=== PATIENT | male | born 1950 | race Caucasian/White ===

== ENCOUNTER 2017-04-04 06:13 | Day surgery (SDC) | payer MEDICARE, OTHER ==
[~2017-04-04 06:13] MED LIST: Dextrose 5%-0.45% NaCl 1,000 ML IV SCH; Sodium Chloride 0.9% 10 ML Syringe FLUSH PRN
[2017-04-04] MEDS ORDERED: Midazolam 1 MG/ML 2 ML SDV IV ONE ×3 (06:14→07:04)
[2017-04-04] MEDS ORDERED: fentaNYL 100 MCG/2 ML SDV IV ONE ×3 (06:14→07:03)
[2017-04-04] MEDS ORDERED: Midazolam 1 MG/ML 2 ML SDV ONE (06:15)
[2017-04-04] MEDS ORDERED: fentaNYL 100 MCG/2 ML SDV ONE (06:16)
--- NOTE | 2017-04-04 07:57 | OR ---
DATE: 04/04/2017 PROCEDURE: Esophagogastroduodenoscopy and multiple pinch biopsies. INSTRUMENT USED: [id number] Olympus video panendoscope. PREMEDICATIONS: No oral topical anesthesia used. Fentanyl 100 mcg intravenous and Versed 2 mg intravenous. The procedure was done under pulse oximetry, BP recording, and world language teacher. INDICATION: The patient with persistent abdominal bloating, dyspepsia, and pain, unexplained and not responsive to medical measures, on long-term aspirin. Recent CT is suggestive of abnormality of the duodenal wall. Esophagogastroduodenoscopy is performed for detection of any active erosive lesions, malignancy also under consideration, H. pylori status to be determined, endoscopic hemostasis therapy if needed. DESCRIPTION OF PROCEDURE: The scope was passed with ease. Adequate visualization of the esophagus was made from proximal to distal areas. No upper esophageal lesions identified. No distal esophageal stricture. No uphill or downhill esophageal varices. No Radha-Do tear. No evidence of erosive esophagitis by Bowman criteria. No esophageal polyp or tumor mass identified. Z-line was seen at around 40 cm distal to the oral verge, configuration consistent with grade 1 by ZAP classification. No proximal gastric varices noted. Gastric fundus examination by retroflexion showed no polypoid lesions. No gastric ulcer, malignant mass, or vascular ectasia identified. Duodenal bulb showed no ulcer. Visualized second part of the duodenum was unremarkable. Multiple pinch biopsies were taken from the gastric antrum and proximal body and sent for PyloriTek test for H. pylori, and if negative in an hour, tissue was to be sent for histopathology. No bleeding was noted from any of the visualized areas at the completion of examination. Photographs were taken of the duodenal bulb, gastric antrum, fundus, and distal esophagus. IMPRESSION: Normal study. The patient tolerated the procedure well. [facility] /[id number]
[2017-04-04 09:45] VITALS: BP 128/92
== END 2017-04-04 09:19 | disposition home or self-care (01) ==
LOC: DL.ENDO 06:13
PROVIDERS: ATTEND Internal Medicine Gastroenterology
DX: K29.50 Unspecified chronic gastritis without bleeding (principal)
CPT/HCPCS: 43239; 87077; J2250; J3010; J7042; 88305; 88342

== ENCOUNTER 2018-07-19 17:50 | Emergency (ER) | payer MEDICARE, OTHER ==
[2018-07-19 18:31] VITALS: BP 159/71
[2018-07-19] MEDS ORDERED: Furosemide 20 MG Tab PO ONE (18:57)
--- NOTE | 2018-07-19 19:02 | EDM.PDOC ---
ED HPI GENERAL MEDICAL PROBLEM - General Chief Complaint: General Stated Complaint: REACTION TO MEDS. SWELLING TO FEET AND ANCHES. 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 denies CP/SOB. no pain in legs. has been suggested water pill will help. - Related Data Allergies Allergy/AdvReac Type Severity Reaction Status Date / Time atorvastatin calcium Allergy Other Verified 07/19/18 18:21 [From Lipitor] CALCIUM CONTAINING COMPOUNDS Allergy Other Uncoded 07/19/18 18:21 Home Meds: Home Meds Naproxen Sodium [Aleve] 1 tab PO DAILY PRN 11/20/15 [History] Rosuvastatin Calcium [Crestor] 10 mg PO DAILY 11/20/15 [History] Omeprazole 20 mg PO DAILY 06/27/18 [History] Docusate Sodium [Colace] 100 mg PO DAILY 07/19/18 [History] Itraconazole 200 mg PO BID 07/19/18 [History] Melatonin 5 mg PO BEDTIME 07/19/18 [History] Past Medical History HEENT History: Reports: Impaired Vision, Sinusitis Other HEENT History: wears glasses Cardiovascular History: Reports: High Cholesterol, Hypertension, Other (See Below) Other Cardiovascular History: SYSTOLIC MURMUR Respiratory History: Reports: None Gastrointestinal History: Reports: None, GERD, GI Bleed Genitourinary History: Reports: None Musculoskeletal History: Reports: Arthritis, Back Pain, Chronic, Other (See Below) Other Musculoskeletal History: RIGHT SIDED NECK PAIN RADIATING TO RIGHT UE; DDD CERVICAL; Neurological History: Reports: None Psychiatric History: Reports: None Endocrine/Metabolic History: Reports: Other (See Below) Other Endocrine/Metabolic History: MULTIPLE THYROID NODULES Hematologic History: Reports: None Other Hematologic History: due to bleeding ulcer in the Immunologic History: Reports: None Oncologic (Cancer) History: Reports: Squamous Cell Carcinoma Dermatologic History: Reports: Other (See Below) Other Dermatologic History: NEOPLASM OF UNCERTAIN BEHAVIOR OF SKIN LEFT HAND - Infectious Disease History Infectious Disease History: Reports: Chicken Pox, Measles, Mumps - Past Surgical History Head Surgeries/Procedures: Reports: None HEENT Surgical History: Reports: None, Naso-Sinus Surgery Cardiovascular Surgical History: Reports: None GI Surgical History: Reports: Colostomy, EGD Other GI Surgeries/Procedures: hx of colon polyps Social & Family History - Family History Family Medical History: Noncontributory - Tobacco Use Smoking Status *Q: Former Smoker Years of Tobacco use: 50 Packs/Tins Daily: 0.5 Used Tobacco, but Quit: Yes Month/Year Tobacco Last Used: april - Caffeine Use Caffeine Use: Reports: Coffee Caffeine Use Comment: 64oz - Recreational Drug Use Recreational Drug Use: No ED ROS GENERAL - Review of Systems Review Of Systems: ROS reveals no pertinent complaints other than HPI. ED EXAM, GENERAL - Physical Exam Exam: See Below Exam Limited By: No Limitations General Appearance: Alert, WD/WN, No Apparent Distress Ears: Hearing Grossly Normal Throat/Mouth: Normal Voice, No Airway Compromise Head: Atraumatic Neck: Non-Tender, Full Range of Motion Respiratory/Chest: No Respiratory Distress Cardiovascular: Regular Rate, Rhythm GI/Abdominal: Soft, Non-Tender Extremities: Pedal Edema, Other (1+ bilateral, NV wnl, gait normal) Neurological: Alert, Oriented, Normal Cognition, Normal Gait, No Motor/Sensory Deficits Psychiatric: Normal Affect, Normal Mood Skin Exam: Warm, Dry, Normal Color Lymphatic: No Adenopathy Course - Vital Signs Last Recorded V/S: Last Vital Signs Temp 36.6 C 07/19/18 18:11 Pulse 74 07/19/18 18:11 Resp 16 07/19/18 18:11 BP 159/71 H 07/19/18 18:30 Pulse Ox 100 07/19/18 18:11 - Orders/Labs/Meds Orders: Active Orders 24 hr Category Date Time Status Furosemide [Lasix] Med 07/19/18 18:57 Once 20 mg PO ONETIME ONE Departure - Departure Time of Disposition: 19:00 Disposition: Home, Self-Care 01 Condition: Good Clinical Impression: Pedal edema - Discharge Information Instructions: Edema, [id number] Additional Instructions: 1) wear compression socks 2) elevate legs as much as possible 3) recheck if there is any change or concern $) follow up with family doctor rx given; lasix 20mg daily x 5 days - My Orders Last 24 Hours: My Active Orders 07/19/18 18:57 Furosemide [Lasix] 20 mg PO ONETIME ONE - Assessment/Plan Last 24 Hours: My Active Orders 07/19/18 18:57 Furosemide [Lasix] 20 mg PO ONETIME ONE
== END 2018-07-19 19:10 | disposition home or self-care (01) ==
LOC: DL.ED 17:50
DX: R60.9 Edema, unspecified (principal); I10 Essential (primary) hypertension; E78.00 Pure hypercholesterolemia, unspecified; K21.9 Gastro-esophageal reflux disease without esophagitis; Z85.828 Personal history of other malignant neoplasm of skin; Z87.891 Personal history of nicotine dependence; Z79.899 Other long term (current) drug therapy; Z88.8 Allergy status to other drugs, medicaments and biological substances
CPT/HCPCS: 99284; A9270

== ENCOUNTER 2018-08-02 11:36 | Emergency (ER) | payer MEDICARE, OTHER ==
[2018-08-02 11:47] VITALS: PULSE 57
[2018-08-02] MEDS ORDERED: Sodium Chloride 0.9% 10 ML Syringe FLUSH PRN (11:47)
--- NOTE | 2018-08-02 11:50 | EDM.PDOC ---
ED HPI GENERAL MEDICAL PROBLEM - General Chief Complaint: General Stated Complaint: BP,SWELLING [id number] Time Seen by Provider: 08/02/18 11:49 Source of Information: Reports: Patient, RN, RN Notes Reviewed History Limitations: Reports: No Limitations - History of Present Illness INITIAL COMMENTS - FREE TEXT/NARRATIVE: Pt to Er with c/o feeling of bloating, denies abdominal pain. States he is "not constipated, but not emptying everything out". He states he was seen on 07/19 in the ER by Dr. Lin. States he was started on Lasix at that time, and BP meds as well that were reordered by Dr. Britt on 07/30. States he was in a clinical trial which found a fungal infection in the left lung. States he is seeing infectious disease at [facility]. He is currently off the fungal medication until . He admits to belly bloating, pedal and bilateral lower extremity edema. Denies pain, fever, chills, N/V/D. He states since 07/04 he has gained 14 pounds. Onset: Gradual - Related Data Allergies Allergy/AdvReac Type Severity Reaction Status Date / Time atorvastatin calcium Allergy Other Verified 08/02/18 12:18 [From Lipitor] CALCIUM CONTAINING COMPOUNDS Allergy Other Uncoded 07/19/18 18:21 Home Meds: Home Meds Naproxen Sodium [Aleve] 1 tab PO DAILY PRN 11/20/15 [History] Rosuvastatin Calcium [Crestor] 10 mg PO DAILY 11/20/15 [History] Omeprazole 20 mg PO DAILY 06/27/18 [History] Docusate Sodium [Colace] 100 mg PO DAILY 07/19/18 [History] Itraconazole 200 mg PO BID 07/19/18 [History] Melatonin 5 mg PO BEDTIME 07/19/18 [History] Past Medical History HEENT History: Reports: Impaired Vision, Sinusitis Other HEENT History: wears glasses Cardiovascular History: Reports: High Cholesterol, Hypertension, Other (See Below) Other Cardiovascular History: SYSTOLIC MURMUR Respiratory History: Reports: None Gastrointestinal History: Reports: None, GERD, GI Bleed Genitourinary History: Reports: None Musculoskeletal History: Reports: Arthritis, Back Pain, Chronic, Other (See Below) Other Musculoskeletal History: RIGHT SIDED NECK PAIN RADIATING TO RIGHT UE; DDD CERVICAL; Neurological History: Reports: None Psychiatric History: Reports: None Endocrine/Metabolic History: Reports: Other (See Below) Other Endocrine/Metabolic History: MULTIPLE THYROID NODULES Hematologic History: Reports: None Other Hematologic History: due to bleeding ulcer in the Immunologic History: Reports: None Oncologic (Cancer) History: Reports: Squamous Cell Carcinoma Dermatologic History: Reports: Other (See Below) Other Dermatologic History: NEOPLASM OF UNCERTAIN BEHAVIOR OF SKIN LEFT HAND - Infectious Disease History Infectious Disease History: Reports: Chicken Pox, Measles, Mumps - Past Surgical History Head Surgeries/Procedures: Reports: None HEENT Surgical History: Reports: None, Naso-Sinus Surgery Cardiovascular Surgical History: Reports: None GI Surgical History: Reports: Colostomy, EGD Other GI Surgeries/Procedures: hx of colon polyps Social & Family History - Family History Family Medical History: Noncontributory - Caffeine Use Caffeine Use: Reports: Coffee Caffeine Use Comment: 64oz ED ROS GENERAL - Review of Systems Review Of Systems: ROS reveals no pertinent complaints other than HPI. ED EXAM, GENERAL - Physical Exam Exam: See Below Exam Limited By: No Limitations General Appearance: Alert, WD/WN, No Apparent Distress, Anxious Eye Exam: Bilateral Eye: EOMI, Normal Inspection Ears: Normal External Exam, Hearing Grossly Normal Nose: Normal Inspection Throat/Mouth: Normal Inspection, Normal Voice, No Airway Compromise Head: Atraumatic, Normocephalic Neck: Normal Inspection, Supple, Non-Tender, Full Range of Motion Respiratory/Chest: No Respiratory Distress, No Accessory Muscle Use, Chest Non- Tender, Crackles (Left base) Cardiovascular: Normal Peripheral Pulses, Regular Rate, Rhythm, No Gallop, No JVD, No Murmur, No Rub. No: No Edema Peripheral Pulses: 2+: Radial (L), Radial (R) GI/Abdominal: Normal Bowel Sounds, Soft, Non-Tender, No Organomegaly, No Distention, No Abnormal Bruit, No Mass, Pelvis Stable (Male) Exam: Deferred Rectal (Males) Exam: Deferred Back Exam: Normal Inspection, Full Range of Motion, NT Extremities: Normal Range of Motion, Non-Tender, Normal Capillary Refill, Pedal Edema (bilateral lower extrem tish) Neurological: Alert, Oriented, CN II-XII Intact, Normal Cognition, Normal Gait, Normal Reflexes, No Motor/Sensory Deficits Psychiatric: Normal Affect, Normal Mood, Anxious Skin Exam: Warm, Dry, Intact, Normal Color, No Rash Lymphatic: No Adenopathy Course - Vital Signs Last Recorded V/S: Last Vital Signs Temp 96.8 F 08/02/18 11:46 Pulse 57 L 08/02/18 11:46 Resp 14 08/02/18 11:46 BP 183/60 H 08/02/18 16:00 Pulse Ox 100 08/02/18 11:46 - Orders/Labs/Meds Orders: Active Orders 24 hr Category Date Time Status Peripheral IV Care [RC] . DIRECTED Care 08/02/18 11:47 Active Abdomen Pelvis w Cont [CT] Urgent Exams 08/02/18 13:25 Ordered Sodium Chloride 0.9% [Saline Flush] Med 08/02/18 11:47 Active 10 ml FLUSH ASDIRECTED PRN Peripheral IV Insertion Adult [OM.PC] Stat Oth 08/02/18 11:44 Ordered Medication Orders Sodium Chloride (Saline Flush) 10 ml FLUSH ASDIRECTED PRN PRN Reason: Keep Vein Open Last Admin: 08/02/18 13:05 Dose: 10 ml Labs: Laboratory Tests 08/02/18 08/02/18 08/02/18 Range/Units 11:54 11:54 12:23 WBC 7.3 (5.0-10.0) 10^3/uL RBC 4.70 (4.6-6.2) 10^6/uL Hgb 13.7 L (14.0-18.0) g/dL Hct 42.6 (40.0-54.0) % MCV 90.6 (80-100) fL MCH 29.1 (27.0-34.0) pg MCHC 32.2 L (33.0-35.0) g/dL Plt Count 179 (150-450) 10^3/uL Neut % (Auto) 79.1 H (42.2-75.2) % Lymph % (Auto) 9.7 L (20.5-50.1) % [place] % (Auto) 8.0 (2-8) % Eos % (Auto) 3.1 H (1.0-3.0) % Baso % (Auto) 0.1 (0.0-1.0) % Sodium 139 (135-145) mmol/L Potassium 3.8 (3.6-5.0) mmol/L Chloride 102 (101-111) mmol/L Carbon Dioxide 26.0 (21.0-31.0) mmol/L Anion Gap 14.8 BUN 14 (7-18) mg/dL Creatinine 1.0 (0.6-1.3) mg/dL Est Cr Clr Drug Dosing 76.52 mL/min Estimated GFR (MDRD) > 60 BUN/Creatinine Ratio 14.00 Glucose 107 H (74-105) mg/dL Calcium 8.3 L (8.4-10.2) mg/dl Total Bilirubin 0.7 (0.2-1.0) mg/dL AST 16 (10-42) IU/L ALT 16 (10-60) IU/L Alkaline Phosphatase 88 (42-121) IU/L B-Natriuretic Peptide 221 H (0-100) pg/ml Total Protein 6.5 L (6.7-8.2) g/dl Albumin 3.0 L (3.2-5.5) g/dl Globulin 3.5 Albumin/Globulin Ratio 0.86 Urine Color Yellow (YELLOW) Urine Appearance Slightly cloudy (CLEAR) Urine pH 6.5 (5.0-9.0) Ur Specific [place] 1.010 (1.005-1.030) Urine Protein 30 H (NEGATIVE) Urine Glucose (UA) Negative (NEGATIVE) Urine Ketones Negative (NEGATIVE) Urine Occult Blood Small H (NEGATIVE) Urine Nitrite Negative (NEGATIVE) Urine Bilirubin Negative (NEGATIVE) Urine Urobilinogen 0.2 (0.2-1.0) mg/dL Ur Leukocyte Esterase Negative (NEGATIVE) Urine RBC 5-10 H /HPF Urine WBC 0-5 (0-5/HPF) /HPF Ur Epithelial Cells Rare /HPF Amorphous Sediment Few (0/HPF) /HPF Urine Bacteria Rare (0-FEW/HPF) /HPF Meds: Medications Generic Name Dose Route Start Last Admin Trade Name Freq PRN Reason Stop Dose Admin Sodium Chloride 10 ml 08/02/18 11:47 08/02/18 13:05 Saline Flush FLUSH 10 ml ASDIRECTED PRN Administration Keep Vein Open Discontinued Medications Generic Name Dose Route Start Last Admin Trade Name Freq PRN Reason Stop Dose Admin Clonidine HCl 0.1 mg 08/02/18 15:11 08/02/18 15:25 Catapres PO 08/02/18 15:12 0.1 mg ONETIME ONE Administration Furosemide 80 mg 08/02/18 14:57 08/02/18 15:25 Lasix IVPUSH 08/02/18 14:58 80 mg NOW ONE Administration Iopamidol 75 ml 08/02/18 13:26 08/02/18 13:45 Isovue-300 (61%) IVPUSH 08/02/18 13:27 75 ml ONETIME ONE Administration - Radiology Interpretation Free Text/Narrative:: Abdomen/Pelvis CT w/ contrast: FINDINGS: Lower thorax: There is a left pleural effusion. There is left lower lobe compressive atelectasis. ABDOMEN: Liver: The liver is not enlarged. There is an irregular nonspecific enhancing lesion in the right lobe just lateral to the bifurcation of the right portal vein. Gallbladder and bile ducts: No calcified gallstones, gallbladder wall thickening , or pericholecystic inflammation. No biliary ductal dilation. Pancreas: No peripancreatic inflammation. No pancreatic ductal dilation. Spleen: The spleen is homogeneous and is not enlarged. There is an accessory splenule. Adrenals: No adrenal mass. Kidneys and ureters: No hydronephrosis. No nephrolithiasis. There is a 1.6 cm exophytic right renal mass. There is nonspecific bilateral perirenal edema. Stomach and bowel: No bowel obstruction. There is a fair amount of stool in the colon, more so proximally. No transition zone. No bowel wall thickening. No diverticulitis. Appendix: The appendix has a normal caliber with no wall thickening. No periappendiceal stranding. PELVIS: Bladder: No urinary bladder calculus or wall thickening. Reproductive: Unremarkable as visualized. ABDOMEN and PELVIS: Intraperitoneal space: There is trace low attenuation free intraperitoneal fluid. No pneumoperitoneum. Bones/joints: Disc degeneration with a vacuum disc is present at L5-S1. Multilevel facet arthropathy present in the lower lumbar spine. Multilevel bridging osteophytes are present in the lower thoracic spine. Soft tissues: Unremarkable. Vasculature: No abdominal aortic aneurysm. No iliac or common femoral artery aneurysm. The mesenteric arteries are patent. The mesenteric and portal veins are patent. The inferior vena cava and iliofemoral veins are not compressed. Lymph nodes: No pathologically enlarged lymph nodes. IMPRESSION: 1. Fair amount of stool in the colon, but no evidence of mechanical bowel obstruction 2. No central venous compression. 3. Enhancing nonspecific mass in the right lobe of the liver. Neoplasm is not excluded. COMMENT: Consistent with the [employer]'s Incidental Findings Committee Report (J Am Javan Radiol 2010): Unless the patient's specific circumstances suggest otherwise , any liver lesion 0.5 cm or less, any cystic kidney lesion less than 1.0 cm, and/or any adrenal lesion 1.0 cm or less not otherwise characterized in this report as possessing suspicious or indeterminate imaging features is/are highly likely to be benign and do not require follow-up imaging or biopsy. Thank you for allowing us to participate in the care of your patient. Dictated and Authenticated by: Brad Rowe MD 08/02/2018 2:49 PM Central Time ([place] & [place]) See rad report Departure - Departure Time of Disposition: 15:48 Disposition: Home, Self-Care 01 Condition: Fair Clinical Impression: Blastomycosis, Pleural effusion, Bradycardia Hypertension Qualifiers: Hypertension type: unspecified Qualified Code(s): I10 - Essential (primary) hypertension - Discharge Information *PRESCRIPTION DRUG MONITORING PROGRAM REVIEWED*: No *COPY OF PRESCRIPTION DRUG MONITORING REPORT IN PATIENT FILIBERTO: No Instructions: How to Take Your Blood Pressure, [id number], Hypertension, Easy -to-Read, Pleural Effusion Forms: ED Department Discharge Additional Instructions: Call Dr. Britt's office in the morning to make an earlier appointment Low sodium diet May use Miralax daily for constipation May use Magnesium Citrate over the counter as directed for constipation Return to the ER if any dizziness, headache, blurred vision, - My Orders Last 24 Hours: My Active Orders 08/02/18 11:44 Peripheral IV Insertion Adult [OM.PC] Stat 08/02/18 11:47 Peripheral IV Care [RC] . DIRECTED Sodium Chloride 0.9% [Saline Flush] 10 ml FLUSH ASDIRECTED PRN 08/02/18 13:25 Abdomen Pelvis w Cont [CT] Urgent - Assessment/Plan Last 24 Hours: My Active Orders 08/02/18 11:44 Peripheral IV Insertion Adult [OM.PC] Stat 08/02/18 11:47 Peripheral IV Care [RC] . DIRECTED Sodium Chloride 0.9% [Saline Flush] 10 ml FLUSH ASDIRECTED PRN 08/02/18 13:25 Abdomen Pelvis w Cont [CT] Urgent
[2018-08-02 12:19] LABS: ANION GAP 14.8; CHLORIDE,CL 102 mmol/L (101-111); SODIUM,NA 139 mmol/L (135-145)
[2018-08-02] MEDS ORDERED: Iopamidol 612 MG/ML 75 ML Bottle IVPUSH ONE (13:26)
[2018-08-02] MEDS ORDERED: Furosemide 40 MG/4 ML VIAL IVPUSH ONE (14:57)
[2018-08-02] MEDS ORDERED: cloNIDine 0.1 MG Tab PO ONE (15:11)
[2018-08-02 16:00] VITALS: BP 183/60
== END 2018-08-02 16:19 | disposition home or self-care (01) ==
LOC: DL.ED 11:36
DX: B40.9 Blastomycosis, unspecified (principal); J90 Pleural effusion, not elsewhere classified; R00.1 Bradycardia, unspecified; E78.00 Pure hypercholesterolemia, unspecified; I10 Essential (primary) hypertension; K21.9 Gastro-esophageal reflux disease without esophagitis; Z88.1 Allergy status to other antibiotic agents; Z88.8 Allergy status to other drugs, medicaments and biological substances; Z79.899 Other long term (current) drug therapy
CPT/HCPCS: 36415; 74177; 80053; 81001; 83880; 85025; 96374; 99283; A9270; J1940; Q9967; 99284

== ENCOUNTER 2021-11-22 06:22 | Day surgery (SDC) | payer MEDICARE, OTHER ==
[~2021-11-22 06:22] MED LIST changes: -Dextrose 5%-0.45% NaCl 1,000 ML IV SCH; +Sodium Chloride 0.9% 10 ML Syringe FLUSH SCH
[2021-11-22] MEDS ORDERED: Midazolam 1 MG/ML 2 ML SDV IV ONE (06:23)
[2021-11-22] MEDS ORDERED: Propofol 200 MG/20 ML SDV IV ONE (06:23)
[2021-11-22] MEDS: Dextrose 5%-0.45% NaCl 1,000 ML IV SCH ×2 (07:15→09:13)
[2021-11-22 12:35] VITALS: BP 137/44; PULSE 40
== END 2021-11-22 10:44 | disposition home or self-care (01) ==
LOC: DL.ENDO 06:22
PROVIDERS: ATTEND Internal Medicine Gastroenterology
DX: K31.819 Angiodysplasia of stomach and duodenum without bleeding (principal); K31.89 Other diseases of stomach and duodenum; I10 Essential (primary) hypertension; K21.9 Gastro-esophageal reflux disease without esophagitis; E78.5 Hyperlipidemia, unspecified; Z87.891 Personal history of nicotine dependence
CPT/HCPCS: 00731; 43239; 87077; J2250; J2704; J7042; 88305

== ENCOUNTER → 2021-11-23 | Day surgery (SDC) | payer MEDICARE, OTHER ==
[~2021-11-23] MED LIST changes: +Dextrose 5%-0.45% NaCl 1,000 ML IV SCH; +Lactated Ringers 1,000 ML IV SCH; +Midazolam 1 MG/ML 2 ML SDV IV ONE; -Sodium Chloride 0.9% 10 ML Syringe FLUSH PRN; -Sodium Chloride 0.9% 10 ML Syringe FLUSH SCH; +fentaNYL 100 MCG/2 ML SDV IV ONE
[2021-11-23 11:11] VITALS: BP 157/55; PULSE 46
== END | disposition home or self-care (01) ==
LOC: DL.ENDO 06:26
PROVIDERS: ATTEND Internal Medicine Gastroenterology
DX: D12.2 Benign neoplasm of ascending colon (principal); D12.3 Benign neoplasm of transverse colon; K59.00 Constipation, unspecified; I10 Essential (primary) hypertension; E78.5 Hyperlipidemia, unspecified; K21.9 Gastro-esophageal reflux disease without esophagitis; Z87.891 Personal history of nicotine dependence
CPT/HCPCS: 00811; 45385; J2250; J3010; J7042; 88305

== ENCOUNTER 2024-02-19 13:36 | Emergency (ER) | payer MEDICARE, OTHER ==
[2024-02-19] MEDS ORDERED: Sodium Chloride 0.9% 10 ML Syringe FLUSH PRN (13:50)
[2024-02-19 14:12] LABS: BASOPHILS PERCENT AUTO 0.3 % (0.0-1.0); EOSINOPHILS PERCENT AUTO 0.8 % (1.0-3.0); HEMATOCRIT 47.7 % (40.0-54.0); HEMOGLOBIN 15.9 g/dL (14.0-18.0); LYMPHOCYTES PERCENT AUTO 15.2 % (20.5-50.1); MEAN CORPUSCULAR HEMOGLOBIN 31.7 pg (27.0-34.0); MEAN CORPUSCULAR HGB CONC 33.3 g/dL (33.0-35.0); MEAN CORPUSCULAR VOLUME 95.2 fL (80-100); MONOCYTES PERCENT AUTO 9.1 % (2-8); NEUTROPHILS PERCENT AUTO 74.6 % (42.2-75.2); PLATELET COUNT,PLT 292 10^3/uL (150-450); RED BLOOD CELL COUNT 5.01 10^6/uL (4.6-6.2); WHITE BLOOD CELL COUNT,WBC 10.3 10^3/uL (5.0-10.0)
[2024-02-19 15:11] LABS: ALANINE AMINOTRANSFERASE,ALT 18 U/L (16-63); ALBUMIN 3.6 g/dL (3.4-5.0); ALKALINE PHOSPHATASE 91 U/L (46-116); ANION GAP 13.4 mEq/L (7-13); ASPARTATE AMNIOTRANSFERASE,AST 20 U/L (15-37); BILIRUBIN TOTAL 0.4 mg/dL (0.2-1.0); BLOOD UREA NITROGEN,BUN 19 mg/dL (7-18); BUN/CREATININE RATIO 16.4 (No establ ref range); C-REACTIVE PROTEIN < 0.50 ng/dL (<=0.50); CALCIUM 9.5 mg/dL (8.5-10.1); CARBON DIOXIDE,CO2 27 mmol/L (21-32); CHLORIDE,CL 103 mmol/L (98-107); CREATININE 1.16 mg/dL (0.70-1.30); EST CRCL DRUG DOSING (CG) 57.69 mL/min; ESTIMATED GFR 66 mL/min (>=60); GLUCOSE RANDOM 102 mg/dL (70-99); POTASSIUM,K 4.4 mmol/L (3.5-5.1); PROTEIN TOTAL,TP 7.3 g/dL (6.4-8.2)
[2024-02-19 15:12] LABS: SODIUM,NA 139 mmol/L (136-145)
[2024-02-19] MEDS: Iopamidol 612 MG/ML 100 ML Bottle IVPUSH ONE (15:14)
[2024-02-19 15:16] LABS: LACTIC ACID 1.7 mmol/L (0.4-2.0)
[2024-02-19 16:04] VITALS: PULSE 73
[2024-02-19 17:03] VITALS: BP 173/77
== END 2024-02-19 17:25 | disposition home or self-care (01) ==
LOC: DL.ED 13:36
DX: K43.9 Ventral hernia without obstruction or gangrene (principal); K59.00 Constipation, unspecified; E78.00 Pure hypercholesterolemia, unspecified; K21.9 Gastro-esophageal reflux disease without esophagitis; I10 Essential (primary) hypertension; Z86.16 Personal history of COVID-19; Z79.899 Other long term (current) drug therapy; Z88.8 Allergy status to other drugs, medicaments and biological substances
CPT/HCPCS: 36415; 74177; 80053; 83605; 85025; 86140; 99284; Q9967

== ENCOUNTER 2024-06-06 16:08 | Emergency (ER) | payer MEDICARE, OTHER ==
[2024-06-06 17:45] VITALS: BP 133/68; PULSE 61
== END 2024-06-06 18:16 | disposition home or self-care (01) ==
LOC: DL.ED 16:08
DX: U07.1 COVID-19 (principal); I10 Essential (primary) hypertension; E78.00 Pure hypercholesterolemia, unspecified; K21.9 Gastro-esophageal reflux disease without esophagitis; Z88.8 Allergy status to other drugs, medicaments and biological substances; Z79.899 Other long term (current) drug therapy
CPT/HCPCS: 87428-QW; 99283